=== PATIENT | male | born 1965 | race Caucasian/White ===

== ENCOUNTER 2022-04-15 11:23 | Outpatient (CLI) | payer OTHER, SELFPAY ==
[2022-04-15 21:34] LABS: Albumin* 4.4 g/dL (3.3-5.0); Chloride* 107 mmol/L (96-114); Sodium* 141 mmol/L (135-149)
[2022-04-15 21:35] LABS: Potassium* 4.1 mmol/L (3.6-5.1)
[2022-04-15 21:37] LABS: Alkaline Phosphatase* 57 U/L (40-150); Aspartate Amino Transferase* 28 U/L (12-35); Bilirubin Total* 1.2 mg/dL (0.1-1.5); Blood Urea Nitrogen* 13 mg/dL (7-30); Carbon Dioxide* 27 mmol/L (20-32); Cholesterol* 166 mg/dL (90-199); Creatinine* 0.9 mg/dL (0.5-1.5); Estimated Glomerular Filt Rate 100 ml/min; Glucose* 94 mg/dL (60-115); Total Protein* 7.1 g/dL (6.0-8.3)
[2022-04-15 21:38] LABS: Alanine Aminotransferase* 35 U/L (4-50); Calcium* 9.2 mg/dL (8.4-10.6); HDL Cholesterol* 45 mg/dL (>=40); LDL Cholesterol Calculated 91 mg/dL (<100); Triglycerides* 150 mg/dL (40-149)
[2022-04-15 22:06] LABS: PSA Screen* 1.67 ng/mL (0.10-4.00)
== END 2022-04-15 11:24 | disposition home or self-care (01) ==
LOC: FRMREF 11:24
PROVIDERS: PCP Family Medicine; Visit Provider Family Medicine
DX: E78.5 Hyperlipidemia, unspecified (principal); Z12.5 Encounter for screening for malignant neoplasm of prostate
CPT/HCPCS: 80053; 80061; 84153

== ENCOUNTER 2023-10-12 06:27 | Outpatient (CLI) | payer OTHER, SELFPAY ==
--- NOTE | 2023-10-12 08:12 | W.ANESCHARGE ---
Anesthesia Charges Start Date/Time Anesthesia Start Date: 10/12/23 Anesthesia Start Time: 07:30 Stop Date/Time Anesthesia Stop Date: 10/12/23 Anesthesia Stop Time: 08:05
--- NOTE | 2023-10-12 10:23 | W.ANESCHARGE ---
Anesthesia Charges Start Date/Time Anesthesia Start Date: 10/12/23 Anesthesia Start Time: 07:30 Stop Date/Time Anesthesia Stop Date: 10/12/23 Anesthesia Stop Time: 08:05
== END 2023-10-12 06:28 | disposition home or self-care (01) ==
LOC: OP CLINIC 06:28
PROVIDERS: Visit Provider Surgery
DX: Z12.11 Encounter for screening for malignant neoplasm of colon (principal); K63.5 Polyp of colon; K62.1 Rectal polyp; K57.30 Diverticulosis of large intestine without perforation or abscess without bleeding; Z86.010 Personal history of colon polyps
CPT/HCPCS: 00811; 45385; 88305; J2704